=== PATIENT | male | born 1970 | race African-American/Black ===

== ENCOUNTER 2023-01-10 06:20 | Day surgery (SDC) | payer OTHER ==
[~2023-01-10] VITALS: Ht 182.9 cm; Wt 95.3 kg
[~2023-01-10 06:20] MED LIST: MELO5CAP2 PO
[2023-01-10] MEDS ORDERED: CIPROFLOXACIN 400MG/200ML 200 ML IV ONE (06:38)
[2023-01-10] MEDS ORDERED: MIDAZOLAM HCL 2MG/2ML 2ml VIAL (1mg/ml) ONE (06:52)
[2023-01-10] MEDS ORDERED: fentaNYL CITRATE 100 MCG/2 ML VL ONE (06:52)
[2023-01-10] MEDS ORDERED: PROPOFOL 10 MG/ML 20 ML IV ONE (06:53)
[2023-01-10] MEDS ORDERED: ONDANSETRON HCL 4 MG/2 ML VIAL ONE (06:53)
[2023-01-10] MEDS ORDERED: SODIUM CHLORIDE LOCK 10 ML ONE (06:53)
[2023-01-10] MEDS ORDERED: HYDROmorphone HCL 2 MG/ML VL/or syr IV PRN ×2 (07:15)
[2023-01-10] MEDS ORDERED: MORPHINE SULFATE INJ 2 MG/ml SYRG IV PRN (07:15)
[2023-01-10] MEDS ORDERED: METOCLOPRAMIDE HCL 5MG/ml INJ 2ml VIAL IV PRN (07:15)
[2023-01-10 08:30] VITALS: BP 122/81
== END 2023-01-10 08:45 | disposition home or self-care (01) ==
LOC: SUR 06:20
PROVIDERS: ATTEND Urology
DX: R97.20 Elevated prostate specific antigen [PSA] (principal)
CPT/HCPCS: 55700; J0744; J2250; J2405; J2704; J3010